=== PATIENT | male | born 1985 | race Caucasian/White ===

== ENCOUNTER 2017-06-04 12:11 | Outpatient (CLI) | payer BC ==
--- NOTE | 2017-06-05 07:20 | RAD ---
THREE VIEWS OF THE LEFT SHOULDER INDICATIONS: Left shoulder pain. COMPARISON: None. FINDINGS: There is a small focus of hydroxyapatite deposition overlying the left greater tuberosity, measuring 6 mm. No acute fracture or subluxation is evident. The visualized left lung is clear. IMPRESSION: 1. 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 This can be symptomati c to the patient. MRI examination may be helpful for improved characterization. 2. No acute osseous abnormality. POS: NO
== END 2017-06-04 12:12 | disposition home or self-care (01) ==
LOC: NAV RAD 12:11
DX: M25.512 Pain in left shoulder (principal)